=== PATIENT | female | born 1985 ===

== ENCOUNTER → 2024-09-17 10:54 | Outpatient (REF) | payer SELFPAY ==
[2024-09-17 16:30] LABS: HIV Combo Negative (Negative)
[2024-09-17 19:30] LABS: Hepatitis B Surface Antigen Negative (Negative)
[2024-09-17 19:48] LABS: Hepatitis B Surface Antibody Positive; Hepatitis C Antibody Negative (Negative)
== END ==
LOC: CLAB 10:54
PROVIDERS: ATTENDING PHYSICIAN Orthopaedic Surgery
DX: Z77.21 Contact with and (suspected) exposure to potentially hazardous body fluids (principal)
CPT/HCPCS: 86706; 86803; 87340; 87389